=== PATIENT | male | born 1990 | race Caucasian/White ===

== ENCOUNTER 2024-01-23 14:21 | Outpatient (AMB) | payer BC, SELFPAY ==
--- NOTE | 2024-01-23 14:27 | A.OFFVIS_ITS ---
Vital Signs 01/23/24 14:30 Height 5 ft 4 in Weight 239 lb 8 oz BMI 41.1 BP 124/76 Blood Pressure Location Lt brachial Position Sitting Pulse 84 Pulse Source Pulse Oximeter Pulse Oximetry (%) 98 Oxygen Delivery Method Room Air Intake Visit Reasons: asthma Allergies No Known Allergies Allergy (Verified 01/23/24 14:32) HPI HPI asthma: Details: Gerry is a pleasant 33 year old male, never smoker, with underlying asthma since childhood, never requiring intubation. He was referred by PCP for pulmonary evaluation. He reports significant symptoms with seasonal changes requiring oral steroids multiple times per year for the last 10+ years. He was previously on Advair and Singulair many years ago, unclear effect. He reports using albuterol MDI/neb frequently when he has exacerbations. He last required steroids this past Spring. He recently underwent allergy testing through [facility] which revealed significant environmental and perennial allergies. Recent labs did not reveal any eosinphilia. He has been using Flonase and multiple anithistamines with suboptimal effect. He was offered allergen immunotherapy however declined. He has dogs at home, which he reportedly does not have an allergy to. No allergy records available today. He reports father with asthma otherwise no pertinent family history. 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 [facility] Social History Patient Tobacco Use Status: Never used Tobacco Review of Systems Const Denies chills, Denies excessive sweating, Denies fever(s), Denies headache(s) and Denies night sweats Eyes Denies dry eyes, Denies irritation and Denies itchy eyes ENT Reports Normal hearing present, Denies headache(s), Denies nasal congestion, Denies nasal discharge, Denies post nasal drip and Denies sore throat Card Denies chest pain, Denies chest pain at rest, Denies chest pain with activity, Denies claudication, Denies leg edema, Denies dyspnea, Denies dyspnea on exertion, Denies orthopnea and Denies paroxysmal nocturnal dyspnea Resp Denies chest congestion, Denies cough, Denies excessive phlegm production, Denies pain on inspiration, Denies pain with cough, Denies dyspnea, Denies dyspnea on exertion, Denies stridor and Denies wheezing Musc Denies myalgias Neuro Reports Normal hearing present and Denies headache(s) Endo Denies excessive sweating Castillo/Lymph Denies lymphadenopathy Aller/Immun Denies itchy eyes, Denies seasonal rhinorrhea and Denies wheezing Physical Exam Vital Signs: Last Vital Signs Pulse 84 01/23/24 14:30 BP 124/76 01/23/24 14:30 Pulse Ox 98 01/23/24 14:30 Oxygen Delivery Method Room Air 01/23/24 14:30 BMI result Body Mass Index 41.1 Const General: cooperative, healthy appearing, comfortable, no acute distress, well developed and alert Orientation/consciousness: patient oriented x3 Limitations: no limitations HEENT Head: Yes normal to inspection, Yes normocephalic and Yes atraumatic Ears: hearing grossly normal bilaterally and external ears normal Eyes General: appearance normal, both eyes and all related structures Eyelids: Yes eyelids normal Sclerae: sclerae normal EOM: EOMs intact bilaterally Neck Neck: Yes normal visual inspection and Yes no lymphadenopathy Lymphatic: no lymphadenopathy noted Chest Chest palpation & inspection: normal inspection of the chest Resp Effort & Inspection: normal respiratory effort, able to speak in complete sentences, no audible wheezes, no cough, no stridor, not tachypneic, no tripod positioning and no use of accessory muscles Auscultation: clear to auscultation bilaterally Cardio Jugular venous distension: no JVD Rate: regular rate Rhythm: regular rhythm Skin Other: warm, dry General skin exam: no rashes or lesions noted Neuro General: patient oriented x3 Cranial nerves: Yes Normal hearing present Cognition (Neuro): normal cognition Gait exam (Neuro): Normal gait present Extrem General: Yes normal to inspection, Yes capillary refill normal, Yes no clubbing, cyanosis or edema and Yes no pedal edema Psych Appearance: grossly normal and well kempt Speech and movement: Normal speech and movement present and Clear speech present Affect: normal affect Attitude: cooperative Thought process: Normal thought process present Thought content: Normal thought content present Insight: Good insight present (Psych) Judgement: Good judgement present (Psych) Assessment & Plan Assessment & Plan (1) Asthma: Code(s): J45.909 - Unspecified asthma, uncomplicated Category: Medical (2) Environmental allergies: Code(s): Z91.09 - Other allergy status, other than to drugs and biological substances Category: Medical Plan Gerry reports supboptimal control with current regimen and has required multiple rounds of oral steroids over the last 10+ years. Will empirically trial Breo and send nebulizer for home use. Discussed importance of good oral hygiene to prevent thrush. Will consider adding Singulair. He is aware to call for worsening symptoms. Will send for PFT to assess severity. Will request records from [facility] to review allergy testing. All questions were answered and patient is in agreement of plan. Will follow up to review results and response to inhaler. Orders: Orders PFT pulmonary function test Today J45.909 - Unspecified asthma, uncomplicated Medications: New fluticasone furoate-vilanterol 100-25 mcg/dose (Breo Ellipta) 1 inh inhalation DAILY 60 ea 3RF albuterol sulfate 90 mcg/actuation 2 puffs inhalation Q6H PRN 1 ea 3RF shortness of breath or wheezing azithromycin For 250 mg dose pack: take 500 mg today (day 1), then 250 mg for 4 days (days 2-5) PO 6 tabs 0RF Coding Level of Care Code New Pt Level 4 (16474) Diagnoses Asthma J45.909 Environmental allergies Z91.09
[2024-01-23 14:30] VITALS: BP 124/76; PULSE 84; O2SAT 98; BMI 41.1
== END 2024-01-23 15:14 | disposition home or self-care (01) ==
PROVIDERS: PCP Nurse Practitioner Family; Visit Provider Nurse Practitioner Family
DX: J45.909 Unspecified asthma, uncomplicated (principal); Z91.09 Other allergy status, other than to drugs and biological substances
CPT/HCPCS: 99204

== ENCOUNTER → 2024-01-23 14:21 | Outpatient (BNVA) | payer BC, SELFPAY | PROVIDERS: PCP Nurse Practitioner Family; Visit Provider Nurse Practitioner Family ==

== ENCOUNTER 2024-04-18 14:34 | Outpatient (REF) | payer BC, SELFPAY ==
--- OUTSIDE RECORDS SUMMARY | 2024-04-18 14:37 | XMS_ITS ---
Author Organization [facility] Address [address] [place] [address] Care Team Providers Care Sped Teacher Name Role Phone Marlyn Bazan Unavailable [phone] Encounters Encounter Location Date Provider Diagnosis [id number] [address] 02/06/2024 Marlyn Bazan PLAN OF TREATMENT No Information Progress Notes * Angelina PETERSsDOB: [birth year] (33 yo M)Acc No.[id number]:02/06/2024 Patient:??Angelina PETERSs Provider:??Marlyn Bazan PA-C :1990?Age:33 Y?Sex:Ma le Date:02/06/2024 Address:[address] [place] [address] Subjective: * Chief Complaints: * ? * Medical History:?? Objective: Assessment: Plan: * Treatment: * Images: Billing Information: * Visit Code:?? * Procedure Codes:?? * Sign off status: Pending * Provider:??Marlyn Bazan PA-C Date:??01/09
--- OUTSIDE RECORDS SUMMARY | 2024-04-18 14:37 | XMS_ITS ---
Author Organization [facility] Address [address] [place] [address] Care Team Providers Care Application Security Architect Name Role Phone Marlyn Bazan Unavailable [phone] REASON FOR VISIT balance Encounters Encounter Location Date Provider Diagnosis [address] [address] 01/04/2024 Marlyn Travonk PLAN OF TREATMENT No Information Progress Notes * Angelina PETERSsDOB: [birth year] (33 yo M)Acc No.[id number]:01/04/2024 Patient:??Gerry PETERS :1990?Age:33 Y?Sex:Moon quintero Address:[address] [place] [id number] * true * Date:??
--- OUTSIDE RECORDS SUMMARY | 2024-04-18 14:38 | XMS_ITS | Patient Health Record ---
Author Organization [facility] Address [address] [place] [address] Care Team Providers Care Surfacer Name Role Phone Marlyn Bazan Unavailable [phone] ALLERGIES No Known Allergies REASON FOR REFERRAL No Information MEDICATIONS Medication SIG (Take, Route, Frequency, Duration) Notes Start Date End Date Status Flonase Allergy Relief 50 MCG/ACT 1 spray in each nostril Nasally Once a day for 30 day(s) 10/09/2023 Active Contrave 8-90 MG 1 table PO daily x 7 days, then 1 tablet PO twice daily x 7 days, then 2 tablets in the morning and 1 tablet in the evening x 7 days, then 2 tablets twice daily thereafter Orally twice a day for 30 days Active SOCIAL HISTORY Tobacco Use: Social History Observation Description Date Details (start date - stop date) Never Smoker NA - NA Sex Assigned At : Social History Observation Description Sex Assigned At Unknown Tobacco Use/Smoking Question Answer Notes Are you a nonsmoker Alcohol Screen (Audit-C) Question Answer Notes Did you have a drink contain ing alcohol in the past year? Yes How often did you have a dri nk containing alcohol in the past year? 2 to 4 times a month (2 points) Points 2 Interpretation Negative PROBLEMS Problem Type ICD Code Onset Dates Problem Status W/U Status Risk SNOMED Code Notes Problem Vitamin D deficiency, unspecified (E55.9) Active confirmed 07162250 Problem Other obesity due to excess calories (E66.09) Active confirmed 986786852 Problem Body mass index [BMI] 38.0-38.9, adult (Z68.38) Active confirmed [id number] VITAL SIGNS Heart Rate 82 /min 10/09/2023 Oximetry 99 % 10/09/2023 Blood pressure diastolic 78 mm Hg 10/09/2023 Height 64.25 in 10/09/2023 Blood pressure systolic 118 mm Hg 10/09/2023 Weight 228 lbs 10/09/2023 BMI 38.83 kg/m2 10/09/2023 Encounters Encounter Location Date Provider Diagnosis [address] [address] 11/22/2023 Marlyn Svrcek [address] [address] 12/20/2023 Marlyn Svrcek Other obesity due to excess calories E66.09 ; Body mass index [BMI] 38.0-38.9, adult Z68.38 and Encounter for weight loss counseling Z71.3 [address] [address] 02/06/2024 Marlyn Svrcek [address] [address] 10/09/2023 Marlyn Svrcek Other obesity due to excess calories E66.09 ; Body mass index [BMI] 38.0-38.9, adult Z68.38 and Encounter for weight loss counseling Z71.3 [facility] [address] [facility] [address] [place] [address] 10/15/2023 Marlyn Svrcek Other obesity due to excess calories E66.09 [facility] [address] [place] [address] 12/21/2023 Marlyn Svrcek [address] [address] 01/04/2024 Marlyn Svrcek ASSESSMENTS Encounter Date Diagnosis Assessment Notes Treatment Notes Treatment Clinical Notes Section Notes 10/15/2023 Other obesity due to excess calories (ICD-10 - E66.09) 12/20/2023 Other obesity due to excess calories (ICD-10 - E66.09) #Obesity. 12/20/23: 228.1 pounds, BMI 38.8. New patient welcomed to the practice today. Reviewed medical weight loss options in detail with patient including phentermine, Contrave, Wegovy, compounded semaglutide, Zepbound, compounded tirzepatide, Topamax and metformin. He reports his insurance will not cover Wegovy until he has been followed by weight management program for 6 months. He currently works in [place] and is unable to come in weekly for injections. He did previously do compounded semaglutide at the wellness drip. After review of risk benefits adverse effects of medication he weight like to proceed with Contrave. Discussed proper use and tapering schedule. Reviewed risk benefits adverse effects of medication in detail with patient. We discussed importance of protein intake, hydration and regular exercise. Reviewed Seca scale in detail with patient will plan to repeat at follow-up visit in 4 to 6 weeks. Will send prescription to local pharmacy. If not covered by insurance we did discuss [facility] as an option. Discussed ERICA injections as well as probiotics which he declines at this time. Will get comprehensive labs and review at follow-up visit. Follow-up sooner with any concerns. The patient will continue exercise regimen with an emphasis on improving/increasing steps to at least 6,000-10,000 steps per day. Increasing cardio and strength training exercises as tolerated to improve weight loss and work on building muscle mass. Patient is committed to smarter eating with calorie counting and mindful eating. Limiting processed foods and carbohydrates and increasing leafy greens and lean proteins as well as fruits into their diet. Patient was counseled on the importance of eating local, organic food when possible. Patient has been counseled regarding effects of GLP/GIP-1 agonists and other FDA approved weight loss medications with regards to a multifactorial approach of weight loss as mentioned above and that the medication alone will not be sufficient to meet patients goals. We discussed holistic medication approach with emphasis on lifestyle modification. Discussed obesity as it increases risk of diabetes, cardiovascular disease, and/or organ damage. We spent a lot of time discussing the relationship between food, exercise, sleep, mental health, and obesity. We discussed the importance of having SECAs done every visit and having accountability done during these visits. That the scale is done to monitor not only weight loss but the body composition during medication management and healthy lifestyle changes. We discussed that if the patient is unable at times to financially afford this scale that we would rather waive the fee and have the scale done than have the patient not have the scale obtained. Will follow up with the patient in 4 weeks time to monitor weight loss. Total time was 30 min, greater than 50 % of time was spent on care coordination Case discussed with collaborating physician Juan Rosario who reviewed the assessment and plan. Chart, medications, labs, vital signs reviewed. Dictation was accomplished with the use of Dragon voice recognition software, prone to medical misidentifications and grammatical errors. This is unintentional and the practitioner does try to identify and correct these, but some could still be present. Please do not hesitate to contact practitioner for clarification. All questions answered to patients satisfaction. Patient verbalized understanding of diagnosis and treatments explained. To call sooner prior to next visit it any questions/concerns arise. 12/20/2023 Body mass index [BMI] 38.0-38.9, adult (ICD-10 - Z68.38) #Obesity. 12/20/23: 228.1 pounds, BMI 38.8. New patient welcomed to the practice today. Reviewed medical weight loss options in detail with patient including phentermine, Contrave, Wegovy, compounded semaglutide, Zepbound, compounded tirzepatide, Topamax and metformin. He reports his insurance will not cover Wegovy until he has been followed by weight management program for 6 months. He currently works in [place] and is unable to come in weekly for injections. He did previously do compounded semaglutide at the wellness drip. After review of risk benefits adverse effects of medication he weight like to proceed with Contrave. Discussed proper use and tapering schedule. Reviewed risk benefits adverse effects of medication in detail with patient. We discussed importance of protein intake, hydration and regular exercise. Reviewed Seca scale in detail with patient will plan to repeat at follow-up visit in 4 to 6 weeks. Will send prescription to local pharmacy. If not covered by insurance we did discuss [facility] as an option. Discussed ERICA injections as well as probiotics which he declines at this time. Will get comprehensive labs and review at follow-up visit. Follow-up sooner with any concerns. The patient will continue exercise regimen with an emphasis on improving/increasing steps to at least 6,000-10,000 steps per day. Increasing cardio and strength training exercises as tolerated to improve weight loss and work on building muscle mass. Patient is committed to smarter eating with calorie counting and mindful eating. Limiting processed foods and carbohydrates and increasing leafy greens and lean proteins as well as fruits into their diet. Patient was counseled on the importance of eating local, organic food when possible. Patient has been counseled regarding effects of GLP/GIP-1 agonists and other FDA approved weight loss medications with regards to a multifactorial approach of weight loss as mentioned above and that the medication alone will not be sufficient to meet patients goals. We discussed holistic medication approach with emphasis on lifestyle modification. Discussed obesity as it increases risk of diabetes, cardiovascular disease, and/or organ damage. We spent a lot of time discussing the relationship between food, exercise, sleep, mental health, and obesity. We discussed the importance of having SECAs done every visit and having accountability done during these visits. That the scale is done to monitor not only weight loss but the body composition during medication management and healthy lifestyle changes. We discussed that if the patient is unable at times to financially afford this scale that we would rather waive the fee and have the scale done than have the patient not have the scale obtained. Will follow up with the patient in 4 weeks time to monitor weight loss. Total time was 30 min, greater than 50 % of time was spent on care coordination Case discussed with collaborating physician Juan Rosario who reviewed the assessment and plan. Chart, medications, labs, vital signs reviewed. Dictation was accomplished with the use of [employer] voice recognition software, prone to medical misidentifications and grammatical errors. This is unintentional and the practitioner does try to identify and correct these, but some could still be present. Please do not hesitate to contact practitioner for clarification. All questions answered to patients satisfaction. Patient verbalized understanding of diagnosis and treatments explained. To call sooner prior to next visit it any questions/concerns arise. 10/09/2023 Other obesity due to excess calories (ICD-10 - E66.09) #Obesity. 228.1 pounds, BMI 38.8. New patient welcomed to the practice today. Reviewed medical weight loss options in detail with patient including phentermine, Contrave, Wegovy, compounded semaglutide, Zepbound, compounded tirzepatide, Topamax and metformin. He reports his insurance will not cover Wegovy until he has been followed by weight management program for 6 months. He currently works in [place] and is unable to come in weekly for injections. He did previously do compounded semaglutide at the wellness drip. After review of risk benefits adverse effects of medication he weight like to proceed with Contrave. Discussed proper use and tapering schedule. Reviewed risk benefits adverse effects of medication in detail with patient. We discussed importance of protein intake, hydration and regular exercise. Reviewed Seca scale in detail with patient will plan to repeat at follow-up visit in 4 to 6 weeks. Will send prescription to local pharmacy. If not covered by insurance we did discuss [facility] as an option. Discussed ERICA injections as well as probiotics which he declines at this time. Will get comprehensive labs and review at follow-up visit. Follow-up sooner with any concerns. Weight Consult Plan: Patient has been found to be obese with a BMI of 38.8. Patient has class 2 obesity. Patient was reassured and welcomed to the practice. We discussed that we stress a hollistic medical approach with emphasis on lifestyle modification. Patient was informed that a healthy lifestyle with exercise and good eating habits can help reduce his risk of medical complications. He is explained that obesity increases his risk of diabetes, cardiovascular disease, or organ damage. We spent a lot of time discussing the relationship between food, exercise, sleep, mental health and obesity. Patient was counseled on the importance EATING local, organic food when possible. Patient was educated on clean 15 and dirty dozen. I provided information about reading books called The Food Rules by Red Dimas and Eat Fat Get Lean by Dr Bernard Holguin. Self education is important in the journey for weight management. Patient was offered diagnostic testing. We want to measure visceral adiposity, advanced body composition, adverse lipids, fatty acid balance, risk for heart disease and atherosclerosis, markers of inflammation and genetic susceptibility. Patient was counseled on weight management and was advised to lose weight using B. Lifestyle management which includes several strategies as below 1. Eat a low carbohydrate good fat good protein diet. Eliminate refined carbohydrates from the diet. Continue blood sugar and sugared beverages. Eat local organic when possible. Cook your own meals. Read food labels. None about healthy snacks. Portion control and food with low glycemic index 2. Exercise regularly. Try to get at least 6000 steps a day. Use a predominant to track activity level. Consider using apps like [employer]ekLinks, myfitFigaro Systemspal, lose it, stick as needed for self-monitoring and weight management. Consider group exercises. Consider hiring a personal care attendant. Regular exercise is jo to sustainable health and prevents as a buffer against weight regain 3. Sleep is most important for healing. Tried to sleep at least 8 hours a night. A good quality sleep needs a sleep ritual with ideal room temperature of around 68. It might help to take a shower and have no electronics in the room and sleep in a very dark room without artificial light. Start her sleep routine and get up early in the morning and go to bed on time 4. Make a social connection. Surround yourself with positive people with positive energy. Connect with friends and family. 5. Get into the habit of meditating and mindfulness while doing everything. 6. Go outside and connect with nature. C. Prescription medications Patient was educated on the use of prescription medications for medical weight loss. This is a growing list and includes phentermine, Topamax,Qsymia, contrave, belviq and saxenda. All prescription medications could have side effects including but not limited to kidney stones, seizure disorder cardiac arrhythmias heart attack pancreatitis etc. etc.. Patient was encouraged to read the prescription insert and have coaching with their pharmacist and make an informed decision about taking medication and know that these medications are being prescribed with good intentions and we do not know how a patient would react to her medication. Sudden medications are FDA approved for weight loss and there is also off label use depending on patient's inability to afford medications in an attempt to lose weight D. Behavioral counseling was done to establish a relationship between food and an mood. Patient was provided information about local counseling and psychiatry and Dr Elkins at [facility]. We would like to cover regular topics and build on low glycemic eating exercise mindful eating, using yoga and meditation along with deep breathing and connecting with friends and family. E. MASS PAT reviewed, Patient's current medications were reviewed and opinion was given on medication that can cause weight gain and can be substituted F. Patient was assessed for risk with obesity including and not limiting to atherosclerosis heart disease stroke kidney disease, restrictive lung disease, irritable bowel syndrome and overall mortality. Risk of developing prediabetes diabetes and metabolic syndrome was discussed G. Therapeutic plan: We have decided to make therapeutic plan which would include choosing wisely on calories restricting portion getting active, tracking weight, getting good quality sleep and working on time management H. Patient will follow up in (4) weeks for weight management Total time spent today was 60 minutes of which greater than 50% was spent on coordinating and counseling Case discussed with collaborating physician Juan Rosario who reviewed the assessment and plan. Chart, medications, labs, vital signs reviewed. Dictation was accomplished with the use of [employer] voice recognition software, prone to medical misidentifications and grammatical errors. This is unintentional and the practitioner does try to identify and correct these, but some could still be present. Please do not hesitate to contact practitioner for clarification. All questions answered to patients satisfaction. Patient verbalized understanding of diagnosis and treatments explained. To call sooner prior to next visit it any questions/concerns arise. 10/09/2023 Body mass index [BMI] 38.0-38.9, adult (ICD-10 - Z68.38) #Obesity. 228.1 pounds, BMI 38.8. New patient welcomed to the practice today. Reviewed medical weight loss options in detail with patient including phentermine, Contrave, Wegovy, compounded semaglutide, Zepbound, compounded tirzepatide, Topamax and metformin. He reports his insurance will not cover Wegovy until he has been followed by weight management program for 6 months. He currently works in [place] and is unable to come in weekly for injections. He did previously do compounded semaglutide at the wellness drip. After review of risk benefits adverse effects of medication he weight like to proceed with Contrave. Discussed proper use and tapering schedule. Reviewed risk benefits adverse effects of medication in detail with patient. We discussed importance of protein intake, hydration and regular exercise. Reviewed Seca scale in detail with patient will plan to repeat at follow-up visit in 4 to 6 weeks. Will send prescription to local pharmacy. If not covered by insurance we did discuss [facility] as an option. Discussed ERICA injections as well as probiotics which he declines at this time. Will get comprehensive labs and review at follow-up visit. Follow-up sooner with any concerns. Weight Consult Plan: Patient has been found to be obese with a BMI of 38.8. Patient has class 2 obesity. Patient was reassured and welcomed to the practice. We discussed that we stress a hollistic medical approach with emphasis on lifestyle modification. Patient was informed that a healthy lifestyle with exercise and good eating habits can help reduce his risk of medical complications. He is explained that obesity increases his risk of diabetes, cardiovascular disease, or organ damage. We spent a lot of time discussing the relationship between food, exercise, sleep, mental health and obesity. Patient was counseled on the importance EATING local, organic food when possible. Patient was educated on clean 15 and dirty dozen. I provided information about reading books called The Food Rules by Red Dimas and Eat Fat Get Lean by Dr Bernard Holguin. Self education is important in the journey for weight management. Patient was offered diagnostic testing. We want to measure visceral adiposity, advanced body composition, adverse lipids, fatty acid balance, risk for heart disease and atherosclerosis, markers of inflammation and genetic susceptibility. Patient was counseled on weight management and was advised to lose weight using B. Lifestyle management which includes several strategies as below 1. Eat a low carbohydrate good fat good protein diet. Eliminate refined carbohydrates from the diet. Continue blood sugar and sugared beverages. Eat local organic when possible. Cook your own meals. Read food labels. None about healthy snacks. Portion control and food with low glycemic index 2. Exercise regularly. Try to get at least 6000 steps a day. Use a predominant to track activity level. Consider using apps like [employer]Links, iQVCloudpal, lose it, stick as needed for self-monitoring and weight management. Consider group exercises. Consider hiring a personal care attendant. Regular exercise is jo to sustainable health and prevents as a buffer against weight regain 3. Sleep is most important for healing. Tried to sleep at least 8 hours a night. A good quality sleep needs a sleep ritual with ideal room temperature of around 68. It might help to take a shower and have no electronics in the room and sleep in a very dark room without artificial light. Start her sleep routine and get up early in the morning and go to bed on time 4. Make a social connection. Surround yourself with positive people with positive energy. Connect with friends and family. 5. Get into the habit of meditating and mindfulness while doing everything. 6. Go outside and connect with nature. C. Prescription medications Patient was educated on the use of prescription medications for medical weight loss. This is a growing list and includes phentermine, Topamax,Qsymia, contrave, belviq and saxenda. All prescription medications could have side effects including but not limited to kidney stones, seizure disorder cardiac arrhythmias heart attack pancreatitis etc. etc.. Patient was encouraged to read the prescription insert and have coaching with their pharmacist and make an informed decision about taking medication and know that these medications are being prescribed with good intentions and we do not know how a patient would react to her medication. Sudden medications are FDA approved for weight loss and there is also off label use depending on patient's inability to afford medications in an attempt to lose weight D. Behavioral counseling was done to establish a relationship between food and an mood. Patient was provided information about local counseling and psychiatry and Dr Elkins at [facility]. We would like to cover regular topics and build on low glycemic eating exercise mindful eating, using yoga and meditation along with deep breathing and connecting with friends and family. E. MASS PAT reviewed, Patient's current medications were reviewed and opinion was given on medication that can cause weight gain and can be substituted F. Patient was assessed for risk with obesity including and not limiting to atherosclerosis heart disease stroke kidney disease, restrictive lung disease, irritable bowel syndrome and overall mortality. Risk of developing prediabetes diabetes and metabolic syndrome was discussed G. Therapeutic plan: We have decided to make therapeutic plan which would include choosing wisely on calories restricting portion getting active, tracking weight, getting good quality sleep and working on time management H. Patient will follow up in (4) weeks for weight management Total time spent today was 60 minutes of which greater than 50% was spent on coordinating and counseling Case discussed with collaborating physician Juan Rosario who reviewed the assessment and plan. Chart, medications, labs, vital signs reviewed. Dictation was accomplished with the use of [employer] voice recognition software, prone to medical misidentifications and grammatical errors. This is unintentional and the practitioner does try to identify and correct these, but some could still be present. Please do not hesitate to contact practitioner for clarification. All questions answered to patients satisfaction. Patient verbalized understanding of diagnosis and treatments explained. To call sooner prior to next visit it any questions/concerns arise. 10/09/2023 Encounter for weight loss counseling (ICD-10 - Z71.3) #Obesity. 228.1 pounds, BMI 38.8. New patient welcomed to the practice today. Reviewed medical weight loss options in detail with patient including phentermine, Contrave, Wegovy, compounded semaglutide, Zepbound, compounded tirzepatide, Topamax and metformin. He reports his insurance will not cover Wegovy until he has been followed by weight management program for 6 months. He currently works in [place] and is unable to come in weekly for injections. He did previously do compounded semaglutide at the wellness drip. After review of risk benefits adverse effects of medication he weight like to proceed with Contrave. Discussed proper use and tapering schedule. Reviewed risk benefits adverse effects of medication in detail with patient. We discussed importance of protein intake, hydration and regular exercise. Reviewed Seca scale in detail with patient will plan to repeat at follow-up visit in 4 to 6 weeks. Will send prescription to local pharmacy. If not covered by insurance we did discuss [facility] as an option. Discussed ERICA injections as well as probiotics which he declines at this time. Will get comprehensive labs and review at follow-up visit. Follow-up sooner with any concerns. Weight Consult Plan: Patient has been found to be obese with a BMI of 38.8. Patient has class 2 obesity. Patient was reassured and welcomed to the practice. We discussed that we stress a hollistic medical approach with emphasis on lifestyle modification. Patient was informed that a healthy lifestyle with exercise and good eating habits can help reduce his risk of medical complications. He is explained that obesity increases his risk of diabetes, cardiovascular disease, or organ damage. We spent a lot of time discussing the relationship between food, exercise, sleep, mental health and obesity. Patient was counseled on the importance EATING local, organic food when possible. Patient was educated on clean 15 and dirty dozen. I provided information about reading books called The Food Rules by Red Dimas and Eat Fat Get Lean by Dr Bernard Holguin. Self education is important in the journey for weight management. Patient was offered diagnostic testing. We want to measure visceral adiposity, advanced body composition, adverse lipids, fatty acid balance, risk for heart disease and atherosclerosis, markers of inflammation and genetic susceptibility. Patient was counseled on weight management and was advised to lose weight using B. Lifestyle management which includes several strategies as below 1. Eat a low carbohydrate good fat good protein diet. Eliminate refined carbohydrates from the diet. Continue blood sugar and sugared beverages. Eat local organic when possible. Cook your own meals. Read food labels. None about healthy snacks. Portion control and food with low glycemic index 2. Exercise regularly. Try to get at least 6000 steps a day. Use a predominant to track activity level. Consider using apps like [employer], iQVCloudpal, lose it, stick as needed for self-monitoring and weight management. Consider group exercises. Consider hiring a personal care attendant. Regular exercise is jo to sustainable health and prevents as a buffer against weight regain 3. Sleep is most important for healing. Tried to sleep at least 8 hours a night. A good quality sleep needs a sleep ritual with ideal room temperature of around 68. It might help to take a shower and have no electronics in the room and sleep in a very dark room without artificial light. Start her sleep routine and get up early in the morning and go to bed on time 4. Make a social connection. Surround yourself with positive people with positive energy. Connect with friends and family. 5. Get into the habit of meditating and mindfulness while doing everything. 6. Go outside and connect with nature. C. Prescription medications Patient was educated on the use of prescription medications for medical weight loss. This is a growing list and includes phentermine, Topamax,Qsymia, contrave, belviq and saxenda. All prescription medications could have side effects including but not limited to kidney stones, seizure disorder cardiac arrhythmias heart attack pancreatitis etc. etc.. Patient was encouraged to read the prescription insert and have coaching with their pharmacist and make an informed decision about taking medication and know that these medications are being prescribed with good intentions and we do not know how a patient would react to her medication. Sudden medications are FDA approved for weight loss and there is also off label use depending on patient's inability to afford medications in an attempt to lose weight D. Behavioral counseling was done to establish a relationship between food and an mood. Patient was provided information about local counseling and psychiatry and Dr Elkins at [facility]. We would like to cover regular topics and build on low glycemic eating exercise mindful eating, using yoga and meditation along with deep breathing and connecting with friends and family. E. MASS PAT reviewed, Patient's current medications were reviewed and opinion was given on medication that can cause weight gain and can be substituted F. Patient was assessed for risk with obesity including and not limiting to atherosclerosis heart disease stroke kidney disease, restrictive lung disease, irritable bowel syndrome and overall mortality. Risk of developing prediabetes diabetes and metabolic syndrome was discussed G. Therapeutic plan: We have decided to make therapeutic plan which would include choosing wisely on calories restricting portion getting active, tracking weight, getting good quality sleep and working on time management H. Patient will follow up in (4) weeks for weight management Total time spent today was 60 minutes of which greater than 50% was spent on coordinating and counseling Case discussed with collaborating physician Juan Rosario who reviewed the assessment and plan. Chart, medications, labs, vital signs reviewed. Dictation was accomplished with the use of [employer] voice recognition software, prone to medical misidentifications and grammatical errors. This is unintentional and the practitioner does try to identify and correct these, but some could still be present. Please do not hesitate to contact practitioner for clarification. All questions answered to patients satisfaction. Patient verbalized understanding of diagnosis and treatments explained. To call sooner prior to next visit it any questions/concerns arise. 12/20/2023 Encounter for weight loss counseling (ICD-10 - Z71.3) #Obesity. 12/20/23: 228.1 pounds, BMI 38.8. New patient welcomed to the practice today. Reviewed medical weight loss options in detail with patient including phentermine, Contrave, Wegovy, compounded semaglutide, Zepbound, compounded tirzepatide, Topamax and metformin. He reports his insurance will not cover Wegovy until he has been followed by weight management program for 6 months. He currently works in [place] and is unable to come in weekly for injections. He did previously do compounded semaglutide at the [facility]. After review of risk benefits adverse effects of medication he weight like to proceed with Contrave. Discussed proper use and tapering schedule. Reviewed risk benefits adverse effects of medication in detail with patient. We discussed importance of protein intake, hydration and regular exercise. Reviewed Seca scale in detail with patient will plan to repeat at follow-up visit in 4 to 6 weeks. Will send prescription to local pharmacy. If not covered by insurance we did discuss [facility] as an option. Discussed ERICA injections as well as probiotics which he declines at this time. Will get comprehensive labs and review at follow-up visit. Follow-up sooner with any concerns. The patient will continue exercise regimen with an emphasis on improving/increasing steps to at least 6,000-10,000 steps per day. Increasing cardio and strength training exercises as tolerated to improve weight loss and work on building muscle mass. Patient is committed to smarter eating with calorie counting and mindful eating. Limiting processed foods and carbohydrates and increasing leafy greens and lean proteins as well as fruits into their diet. Patient was counseled on the importance of eating local, organic food when possible. Patient has been counseled regarding effects of GLP/GIP-1 agonists and other FDA approved weight loss medications with regards to a multifactorial approach of weight loss as mentioned above and that the medication alone will not be sufficient to meet patients goals. We discussed holistic medication approach with emphasis on lifestyle modification. Discussed obesity as it increases risk of diabetes, cardiovascular disease, and/or organ damage. We spent a lot of time discussing the relationship between food, exercise, sleep, mental health, and obesity. We discussed the importance of having SECAs done every visit and having accountability done during these visits. That the scale is done to monitor not only weight loss but the body composition during medication management and healthy lifestyle changes. We discussed that if the patient is unable at times to financially afford this scale that we would rather waive the fee and have the scale done than have the patient not have the scale obtained. Will follow up with the patient in 4 weeks time to monitor weight loss. Total time was 30 min, greater than 50 % of time was spent on care coordination Case discussed with collaborating physician Juan Rosario who reviewed the assessment and plan. Chart, medications, labs, vital signs reviewed. Dictation was accomplished with the use of [employer] voice recognition software, prone to medical misidentifications and grammatical errors. This is unintentional and the practitioner does try to identify and correct these, but some could still be present. Please do not hesitate to contact practitioner for clarification. All questions answered to patients satisfaction. Patient verbalized understanding of diagnosis and treatments explained. To call sooner prior to next visit it any questions/concerns arise. PLAN OF TREATMENT Pending Test Test Name Order Date CBC (COMPLETE BLOOD COUNT) WITH DIFF 05/2023 COMPREHENSIVE METABOLIC PANEL 10/09/2023 LIPID PANEL 10/09/2023 TSH 10/09/2023 HEMOGLOBIN A1c 10/09/2023 INSULIN 10/09/2023 VITAMIN D, 1,25 DIHYDROXY LC/MS/MS 10/08 Insurance Providers Payer Name Payer Address Payer Phone Subscriber Number Group Number Insured Name Patient Relationship to Insured Coverage Start Date Coverage End Date [facility] and [employer] [facility] [address] [place] [address] [phone] [id number] Gerry Ramírez Self - patient is the insured
--- OUTSIDE RECORDS SUMMARY | 2024-04-18 14:38 | XMS_ITS ---
Author Organization [facility] Address [address] [place] [address] Care Team Providers Care Car Dealer Name Role Phone Travondavid Marlyn Unavailable [phone] REASON FOR VISIT complaint Encounters Encounter Location Date Provider Diagnosis [facility] [address] [place] [address] 12/21/2023 Marlyn Beni PLAN OF TREATMENT No Information Progress Notes * Angelina PETERSsDOB: [birth year] (33 yo M)Acc No.[id number]:12/21/2023 Patient:??Gerry PETERS :1990?Age:33 Y?Sex:Moon ingrid Address:[address] [place] [id number] * true * Date:??
--- NOTE | 2024-04-18 14:58 | PFT_ITS ---
Flows: FEV1: 81 % of predicted at 2.91 L FVC: 83 % of predicted at 3.59 L FEV1/FVC: 81 % Bronchodilator response: Absent Volumes: Total lung capacity: 75 % of predicted at 4.33 L Residual volume: 57 % of predicted at 0.72 L Slow vital capacity: 79 % of predicted at 3.61 L Expiratory reserve volume: 45 % of predicted at 0.56 L Diffusion capacity: Normal Impression: Mild restrictive ventilatory defect with no bronchodilator response. Decreased expiratory reserve volume suggests extrathoracic restriction likely secondary to abdominal obesity. MTDD
== END 2024-04-18 14:35 | disposition home or self-care (01) ==
LOC: HO.RESP 14:34
PROVIDERS: PCP Nurse Practitioner Family; Visit Provider Nurse Practitioner Family
DX: J45.909 Unspecified asthma, uncomplicated (principal)
CPT/HCPCS: 94010; 94640; 94727; 94729

== ENCOUNTER → 2024-04-18 14:58 | Outpatient (BNV) | payer BC, SELFPAY | PROVIDERS: PCP Nurse Practitioner Family; Visit Provider Internal Medicine Pulmonary Disease | DX: J45.909 Unspecified asthma, uncomplicated (principal) | CPT/HCPCS: 94060; 94727; 94729 ==

== ENCOUNTER 2024-04-23 14:56 | Outpatient (AMB) | payer BC, SELFPAY ==
--- NOTE | 2024-04-23 14:31 | A.OFFVIS_ITS ---
Vital Signs 04/23/24 14:58 Height 5 ft 4 in Weight 246 lb BMI 42.2 BP 120/72 Blood Pressure Location Rt brachial Position Sitting Pulse 80 Pulse Source Pulse Oximeter Pulse Oximetry (%) 98 Oxygen Delivery Method Room Air Intake Visit Reasons: Asthma Event Av Operator Required: No Raw Stock Dyeing Machine Tender: Raw Stock Dyeing Machine Tender offered & declined Accompanied by: Self / Same As Patient Allergies No Known Allergies Allergy (Verified 04/23/24 15:01) Medication List - Last Reconciled 04/23/24 by Le Llanes LPN albuterol sulfate 2.5 mg inhalation Q4-6H PRN albuterol sulfate 90 mcg/actuation 2 puffs inhalation Q6H PRN fluticasone furoate-vilanterol 100-25 mcg/dose (Breo Ellipta) 1 inh inhalation DAILY HPI HPI Asthma: Details: Gerry is a pleasant 33 year old male, never smoker, with underlying asthma since childhood, never requiring intubation. At the last visit he was started on Breo as he previously required multiple rounds of steroids with seasonal changes per year for the last 10+ years. Since initiating he reports excellent control of respiratory symptoms, without the need of albuterol MDI. He denies any visits to urgent care or hospitalizations related to respiratory distress since the last visit. Today he presents to review PFT results. [facility] Social History Patient Tobacco Use Status: Never used Tobacco Review of Systems Const Denies chills, Denies excessive sweating, Denies fever(s), Denies headache(s) and Denies night sweats Eyes Denies dry eyes, Denies irritation and Denies itchy eyes ENT Reports Normal hearing present and Denies headache(s) Card Denies chest pain, Denies chest pain at rest, Denies chest pain with activity, Denies claudication, Denies leg edema, Denies dyspnea, Denies dyspnea on exertion, Denies orthopnea and Denies paroxysmal nocturnal dyspnea Resp Denies chest congestion, Denies cough, Denies excessive phlegm production, Denies pain on inspiration, Denies pain with cough, Denies dyspnea, Denies dyspnea on exertion, Denies stridor and Denies wheezing Musc Denies myalgias Neuro Reports Normal hearing present and Denies headache(s) Endo Denies excessive sweating Castillo/Lymph Denies lymphadenopathy Aller/Immun Denies itchy eyes, Denies seasonal rhinorrhea and Denies wheezing Physical Exam Vital Signs: Last Vital Signs Pulse 80 04/23/24 14:58 Pulse Ox 98 04/23/24 14:58 Oxygen Delivery Method Room Air 04/23/24 14:58 BMI result Body Mass Index 42.2 Const General: cooperative, healthy appearing, comfortable, no acute distress, well developed and alert Nutritional Appearance: obese Orientation/consciousness: patient oriented x3 Limitations: no limitations HEENT Head: Yes normal to inspection, Yes normocephalic and Yes atraumatic Ears: hearing grossly normal bilaterally and external ears normal Eyes General: appearance normal, both eyes and all related structures Eyelids: Yes eyelids normal Sclerae: sclerae normal EOM: EOMs intact bilaterally Neck Neck: Yes normal visual inspection and Yes no lymphadenopathy Lymphatic: no lymphadenopathy noted Chest Chest palpation & inspection: normal inspection of the chest Resp Effort & Inspection: normal respiratory effort, able to speak in complete sentences, no audible wheezes, no cough, no stridor, not tachypneic, no tripod positioning and no use of accessory muscles Auscultation: clear to auscultation bilaterally Cardio Jugular venous distension: no JVD Rate: regular rate Rhythm: regular rhythm Skin Other: warm, dry General skin exam: no rashes or lesions noted Neuro General: patient oriented x3 Cranial nerves: Yes Normal hearing present Cognition (Neuro): normal cognition Gait exam (Neuro): Normal gait present Extrem General: Yes normal to inspection, Yes capillary refill normal, Yes no clubbing, cyanosis or edema and Yes no pedal edema Psych Appearance: grossly normal and well kempt Speech and movement: Normal speech and movement present and Clear speech present Affect: normal affect Attitude: cooperative Thought process: Normal thought process present Thought content: Normal thought content present Insight: Good insight present (Psych) Judgement: Good judgement present (Psych) Assessment & Plan Assessment & Plan (1) Asthma: Code(s): J45.909 - Unspecified asthma, uncomplicated Category: Medical (2) Environmental allergies: Code(s): Z91.09 - Other allergy status, other than to drugs and biological substances Category: Medical Plan Reviewed PFT which revealed no obstructive defect and no significant response to bronchodilators. DLCO normal. Advised to continue Breo and albuterol MDI, as he reports excellent control with regimen. He is aware to call if symptoms worsen, especially with seasonal changes. All questions were answered and patient is in agreement of plan. Will follow up in 6-12 months or sooner if needed. Medications: Refilled fluticasone furoate-vilanterol 100-25 mcg/dose (Breo Ellipta) 1 inh inhalation DAILY 180 ea 1RF Coding Level of Care Code Est Pt Level 4 (99030) Diagnoses Asthma J45.909 Environmental allergies Z91.09
[2024-04-23 14:58] VITALS: BP 120/72; PULSE 80; O2SAT 98; BMI 42.2
== END 2024-04-23 15:22 | disposition home or self-care (01) ==
PROVIDERS: PCP Nurse Practitioner Family; Visit Provider Nurse Practitioner Family
DX: J45.909 Unspecified asthma, uncomplicated (principal); Z91.09 Other allergy status, other than to drugs and biological substances
CPT/HCPCS: 99214

== ENCOUNTER → 2024-04-23 14:56 | Outpatient (BNVA) | payer BC, SELFPAY | PROVIDERS: PCP Nurse Practitioner Family; Visit Provider Nurse Practitioner Family ==